=== PATIENT | male | born 1950 | race Caucasian/White ===

== ENCOUNTER → 2019-09-27 | Day surgery (SDC) | payer OTHER ==
[~2019-09-27] MED LIST: ALBU2.5V14 NEB; BUSP10TA PO; CITA10TA8 PO; DEXA4TAB63 PO; DEXT30SU19 PO; HYDR-52 PO; HYDR1LIQ6 PO; IV RINGERS,LACTATED 1000ML 1,000 ML IV SCH; LIDOCAINE 2% PF 5 ML VIAL. ONE; PARO40TA61 PO; PROPOFOL 20 ML IV ONE; QUIN200T PO; SUCR1TAB35 PO
[2019-09-27 13:51] VITALS: BP 135/78
--- NOTE | 2019-09-27 14:26 | CONS ---
DATE OF CONSULTATION: 09/27/2019 REASON FOR CONSULTATION: Dysfunctional G-tube. REFERRING PHYSICIAN: Heidy Moncada DO. 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 He is nonverbal at this time. Most of the information was obtained with his hospice nurse. PAST MEDICAL HISTORY: ALS, status post knee surgery, status post neck surgery and tobaccoism. ALLERGIES: None. MEDICATIONS: Include albuterol, BuSpar, Celexa, Decadron, hydrocodone, Dilaudid, Paxil, clonidine and Carafate. SOCIAL HISTORY: Retired. Ex-smoker and ex-drinker. FAMILY HISTORY: Noncontributory. REVIEW OF SYSTEMS: Per records. PHYSICAL EXAMINATION: GENERAL: Reveals a well-nourished, well-developed male who is alert, cooperative, and nonverbal. VITAL SIGNS: Temperature is 99, pulse is 105, respiratory rate is 18 and pulse oximetry is 94%. HEENT: Normocephalic, atraumatic head. Pupils and extraocular muscles are not tested. Sclerae anicteric. NECK: Supple. LUNGS: Reveal decreased breath sounds anteriorly. CARDIOVASCULAR: S1, S2 without S3, S4 or appreciable murmur. ABDOMEN: Reveals a soft abdomen with a PEG in the left upper quadrant. EXTREMITIES: Reveals no cyanosis, clubbing or edema. IMPRESSION: Oropharyngeal dysphagia secondary to ALS with dysfunctional G-tube. We will recommend upper endoscopy with G-tube replacement today with the original and her replacement tube. Risks, benefits were discussed with the patient including risk of hemorrhage and perforation and is willing to proceed. MOLINA REID MD DR: CHARLIE/doris JOB#: [id number] / [id number] HEIDY Gonzales DO
== END ==
LOC: SURG 11:36
PROVIDERS: ATTEND Internal Medicine Gastroenterology
DX: R13.14 Dysphagia, pharyngoesophageal phase (principal); K94.29 Other complications of gastrostomy; K29.50 Unspecified chronic gastritis without bleeding; H40.9 Unspecified glaucoma; F32.9 Major depressive disorder, single episode, unspecified; Z87.891 Personal history of nicotine dependence; Z72.89 Other problems related to lifestyle; Z98.42 Cataract extraction status, left eye; Z98.41 Cataract extraction status, right eye; Z96.1 Presence of intraocular lens
CPT/HCPCS: 43246; J2001; J2704